=== PATIENT | male | born 1965 | race Caucasian/White ===

== ENCOUNTER 2022-12-11 19:48 | Emergency (ER) | payer BC, SELFPAY ==
[2022-12-11 19:50] VITALS: BP 141/79; PULSE 96; RESP 16; TEMP 35.9; O2SAT 99
--- NOTE | 2022-12-11 19:55 | ED.SKABFB ---
HPI - Skin/Abscess/Foreign Bdy General Chief complaint: Skin/Abscess/Foreign Body Stated complaint: Foreign Body in Finger Source: patient and RN notes reviewed History of Present Illness HPI narrative: 57 yo M presents to urgent care with complaints of a carbon splinter in his right index finger. Pt states it has been in there for a week, since he was cutting carbon wires. Pt states he has been attempting to dig the splinter out himself with an exacto knife. Pt denies any numbness or tingling. Pt unknown when his last Tdap vaccination occurred but declined an update today. Related Data Allergies Allergy/AdvReac Type Severity Reaction Status Date / Time No Known Allergies Allergy Verified 12/11/22 20:01 Review of Systems Review of Systems: CONSTITUTIONAL: Denies fever, chills, or sweats. EYES: Denies visual changes, redness, or discharge. ENT: Denies otalgia and sore throat CARDIOVASCULAR: Denies chest pain, palpitations, or edema. RESPIRATORY: Denies cough or dyspnea. GASTROINTESTINAL: Denies abdominal pain, nausea, vomiting, or diarrhea. GENITOURINARY: Denies dysuria or hematuria. SKIN: Splinter in finger MUSCULOSKELETAL: Denies back pain, joint pain, or myalgia. NEUROLOGIC: Denies headache, numbness, or weakness. Pertinent positives per HPI. PMFSH Comments At the time of my signature, I reviewed and agree with the nursing past medical, surgical, social, and family history. There is no relevant family history pertinent to the patient complaint. Exam Narrative: GENERAL: This is a well-nourished, well-developed patient, in no apparent distress. HEAD: normocephalic, atraumatic. EYES: Sclera clear/white. Vision is grossly intact. EARS: External ears normal, auditory canals clear and without drainage. Hearing grossly intact. NOSE: External nose normal with no obvious nasal discharge, nares without redness, no rhinorrhea. THROAT: Mucous membranes moist, posterior pharynx clear. NECK: Neck supple, non-tender without lymphadenopathy, masses or thyromegaly. CARDIOVASCULAR: Regular rate RESPIRATORY: No respiratory distress SKIN: superficial lac, approximately 1.5 cm in length to right index finger, volar side, overlying the DIP joint. minimal bleeding. No FB noted. no erythema or purulent drainage. NEURO: awake, alert, and oriented to person, place and time. There were no obvious focal neurologic abnormalities. EXTREMITIES: No clubbing, cyanosis, or edema. No joint tenderness, effusion, or edema noted. BACK: Nontender without deformity or crepitus. No flank tenderness. Course Course Level of Care: Express Care Visit Vital Signs Vital signs: Reviewed MDM - Skin/Abscess/Foreign Bdy MDM Narrative Medical decision making narrative: Do not continue picking or digging in your finger. Call the hand specialist tomorrow morning to make appt. Take the antibiotics as directed. Differential Diagnosis Differential diagnosis: Likely cellulitis and other (FB in finger, phantom FB) Critical Care Time Critical Care Time Critical Care Time: No Discharge Plan Discharge Clinical Impression: Foreign body finger Patient Disposition: Home, Self-Care Condition: Stable Instructions: Antibiotic Form, Puncture Wound (DC) Additional Instructions: Do not continue picking or digging in your finger. Call the hand specialist tomorrow morning to make appt. Take the antibiotics as directed. Prescriptions: New cephalexin 500 mg capsule 500 mg PO Q12H 7 Days Qty: 14 0RF Follow-up/Referrals: Joe Hinds MD [Physician] - Villisca,Yuan Frye MD [Primary Care Provider] - Time of Disposition: 20:08
== END 2022-12-11 20:10 | disposition home or self-care (01) ==
PROVIDERS: Emergency Provider Nurse Practitioner Family; PCP Internal Medicine
DX: S60.450A Superficial foreign body of right index finger, initial encounter (principal); W45.8XXA Other foreign body or object entering through skin, initial encounter
CPT/HCPCS: 90471; 99213; G0463